=== PATIENT | female | born 1955 | race Caucasian/White ===

== ENCOUNTER 2017-03-11 13:25 | Emergency (ER) | payer BC, OTHER ==
[~2017-03-11] VITALS: Ht 165.1 cm; Wt 100.0 kg
[~2017-03-11 13:25] MED LIST: CLAR10TA7 PO; COLL30OI3 TOP; FURO20 PO; LEVO50TA4 PO; LOTE40TA PO; METF500 PO; MOBI15TA PO; MS C30TA5 PO; OXYC20 PO; PREG300 PO; PROT40TA PO
[2017-03-11 13:27] VITALS: BP 140/63; PULSE 69; RESP 18; TEMP 97.8; O2SAT 98
--- NOTE | 2017-03-11 13:34 | PD ---
Physical Exam Date Seen by Provider: March 11, 2017 Time Seen by Provider: 13:31 Narrative 62 y/o female with Right lateral foot pain for the past 6 weeks. Denies injury. Patient is Type 2 diabetic. Denies Hx. of gout. No Fever Chills. No Open Wounds. Pain is 10/10, and worse with ambulation. V/S Stable Awaiting Bed Placement. Data Data Last Documented VS Vital Signs Date Time Temp Pulse Resp B/P Pulse Ox O2 Delivery O2 Flow Rate FiO2 03/11/17 13:27 97.8 69 18 140/63 98 MDM Medical Record Reviewed: Yes Supervised Visit with RAYA: Yes Condition: Stable Raman Clayton March 11, 2017 13:34
[2017-03-11] MEDS ORDERED: ESTR1TAB PO (14:49)
--- NOTE | 2017-03-11 15:06 | RADRPT ---
EXAM DATE/TIME: 03/11/2017 14:47 [facility] COMPARISON: No previous studies available for comparison. INDICATIONS : Pain lateral side of right foot and 5th metatarsal for several weeks, no known trauma MEDICAL HISTORY : None. SURGICAL HISTORY : back surgery ENCOUNTER: Initial ACUITY: 2 weeks PAIN SCORE: 10/10 LOCATION: Right foot FINDINGS: Three view examination of the right foot demonstrates no soft tissue swelling, dislocation, or fractu re. The tarsal bones appear intact. The interphalangeal and metatarsophalangeal joints are intact. The calcaneus is intact. There is mild osteopenia. There are mild degenerative joint changes. CONCLUSION: 1. Mild osteoarthritic change. 2. Mild osteopenia. Tommy Cruz MD on March 11, 2017 at 15:04 Board Certified Radiologist. This report was verified electronically.
--- NOTE | 2017-03-11 15:29 | PD ---
HPI Chief Complaint: Pain: Acute or Chronic Time Seen by Provider: 14:00 Travel History International Travel<30 days: No Contact w/Intl Traveler<30days: No Traveled to known affect area: No History of Present Illness HPI 62 -year-old female with Right lateral foot pain for the past 6 weeks. Denies trauma. Past medical history significant for type 2 diabetes, hypertension, chronic back pain, osteoarthritis of both knees. Denies Hx. of gout. No Fever Chills. No Open Wounds. Pain is 10/10, and worse with ambulation. PFSH Past Medical History Arthritis: Yes Asthma: No Blood Disorders: Yes (PULMONARY EMBOLISM X 1, 1976) Anxiety: Yes Depression: Yes Cancer: Yes (hx of melanoma left upper arm 2013) High Cholesterol: Yes Diabetes: Yes Diverticulitis: Yes Deep Vein Thrombosis: Yes ("1976,pulmonary embolism" WITHOUT DVT) Endocrine: Yes Gastrointestinal Disorders: Yes GERD: Yes Headaches: Yes Hypertension: Yes Immune Disorder: Yes (unknown diagnosis) Inguinal Hernia: Yes (REPAIRED 1991) Implanted Vascular Access Dvce: Yes Musculoskeletal: Yes (arthritis bulging disc and spinal stenosis lumbar area ) Neurologic: Yes (migraines) Immunizations Current: Yes Migraines: Yes Thyroid Disease: Yes PNEUMOCCOCAL Vaccine (Year): 1 Menopausal: Yes : 2 Para: 2 Miscarriage: 0 : 0 Past Surgical History Abdominal Surgery: Yes (cholecystectomy) Appendectomy: Yes Body Medical Devices: hardware in the back Cholecystectomy: Yes (JUN 2008) Ear Surgery: No Endocrine Surgery: No Eye Surgery: No Genitourinary Surgery: Yes Gynecologic Surgery: Yes (hysterectomy) Hysterectomy: Yes Joint Replacement: No Oral Surgery: No Pacemaker: No Thoracic Surgery: Yes (HERNIA REPAIR) Tonsillectomy: Yes Other Surgery: Yes (MELANOMA REMOVED) Family History Family Hypercholesterolemia: Yes Social History Alcohol Use: No Tobacco Use: No Substance Use: No Allergies-Medications (Allergen,Severity, Reaction): Coded Allergies: Latex (Verified Allergy, Intermediate, Rash, 03/11/17) Adhesives (Verified Adverse Reaction, Intermediate, RASH, 03/11/17) paper tape is ok Sulfa (Verified Adverse Reaction, Intermediate, RASH, 03/11/17) Reported Meds & Prescriptions Reported Meds & Active Scripts Active Reported Estradiol 1 Mg Tab 1 Mg PO DAILY Glucophage 500 mg (Metformin HCl) 500 Mg Tab 500 Mg PO Protonix (Pantoprazole Sodium) 40 Mg Tab 40 Mg PO BID Lotensin 40 mg (Benazepril HCl) 40 Mg Tab 1 Tab PO HS Levothyroxine 50 mcg (Levothyroxine Sodium) 50 Mcg Tab 50 Mcg PO DAILY Lasix 20 Mg Tab (Furosemide) 20 Mg Tab 20 Mg PO DAILY OxyCONTIN ER (Oxycodone HCl) 20 Mg Tabcr 30 Mg PO Q8 PRN Ms Contin (Morphine Sulfate) 30 Mg Tab 100 Mg PO TID Physical Exam Narrative GENERAL: Well-nourished well-appearing female. SKIN: Warm and dry. No open wounds. HEAD: Atraumatic. Normocephalic. EYES: Pupils equal and round. No scleral icterus. No injection or drainage. ENT: No nasal bleeding or discharge. Mucous membranes pink and moist. NECK: Trachea midline. No JVD. CARDIOVASCULAR: Regular rate and rhythm. RESPIRATORY: No accessory muscle use. Clear to auscultation. Breath sounds equal bilaterally. GASTROINTESTINAL: Abdomen soft, non-tender, nondistended. Hepatic and splenic margins not palpable. MUSCULOSKELETAL: Extremities without clubbing, cyanosis, or edema. No obvious deformities. Right foot: Tender over the lateral aspect. no swelling, no erythema, no ecchymosis, no wounds. NEUROLOGICAL: Awake and alert. No obvious cranial nerve deficits. Motor grossly within normal limits. Five out of 5 muscle strength in the arms and legs. Normal speech. PSYCHIATRIC: Appropriate mood and affect; insight and judgment normal. Data Data Last Documented VS Vital Signs Date Time Temp Pulse Resp B/P Pulse Ox O2 Delivery O2 Flow Rate FiO2 03/11/17 13:27 97.8 69 18 140/63 98 Orders Foot, Complete (Nav2pou) (03/11/17 ) [facility] Medical Decision Making Medical Screen Exam Complete: Yes Emergency Medical Condition: No Differential Diagnosis Metatarsal fracture, plantar fasciitis, midfoot sprain, gout Narrative Course 62-year-old female presents to the emergency department for with a 6 week history of right lateral foot pain. She denies trauma or wounds to the foot. X -ray the foot is negative for fracture. Patient will be treated for midfoot sprain versus plantar fasciitis. She will be given a prescription for NSAIDs and follow up with podiatry. Patient is agreeable to this plan. Diagnosis Primary Impression: Foot pain, right Referrals: Continuous Improvement Intern Patient Instructions: Foot Sprain (ED), General Instructions Scripts Ibuprofen (Motrin Ib)200 Mg [id number] Mg PO Q8HR PRN (PAIN SCALE 1 TO 5) #20 TAB Prov:Madalyn Kraft 03/11/17 Disposition: 01 DISCHARGE HOME Condition: Stable Madalyn Kraft March 11, 2017 15:29
[2017-03-11] MEDS ORDERED: MOTR200T4 PO (15:39)
[2017-03-11] MEDS ORDERED: KETOROLAC TROMETHAMINE 60 MG/2 ML (IM) VIAL IM ONE (15:45)
[2017-03-11] MEDS ORDERED: MS C100T PO (16:06)
[2017-03-11] MEDS ORDERED: BENA40TA PO (16:06)
[2017-03-11] MEDS ORDERED: OXYC30TA62 PO (16:06)
[2017-03-11] MEDS ORDERED: FURO1TAB62 PO (16:06)
[2017-03-11] MEDS ORDERED: LEVO50TA4 PO (16:06)
[2017-03-11] MEDS ORDERED: METF500T PO (16:06)
[2017-03-11] MEDS ORDERED: PROT40TA PO (16:06)
== END 2017-03-11 15:53 | disposition home or self-care (01) ==
LOC: NEPK 13:25
DX: M79.671 Pain in right foot (principal); E11.9 Type 2 diabetes mellitus without complications; I10 Essential (primary) hypertension; E07.9 Disorder of thyroid, unspecified; E78.00 Pure hypercholesterolemia, unspecified; Z79.84 Long term (current) use of oral hypoglycemic drugs; Z87.39 Personal history of other diseases of the musculoskeletal system and connective tissue; Z86.59 Personal history of other mental and behavioral disorders; Z85.828 Personal history of other malignant neoplasm of skin; Z87.19 Personal history of other diseases of the digestive system; Z86.69 Personal history of other diseases of the nervous system and sense organs
CPT/HCPCS: 73630; 96372; 99284; J1885

== ENCOUNTER 2017-05-03 16:08 | Emergency (ER) | payer BC ==
[~2017-05-03] VITALS: Ht 165.1 cm; Wt 100.0 kg
[~2017-05-03 16:08] MED LIST changes: +BENA40TA PO; -CLAR10TA7 PO; -COLL30OI3 TOP; +ESTR1TAB PO; +FURO1TAB62 PO; -FURO20 PO; -LOTE40TA PO; -METF500 PO; +METF500T PO; -MOBI15TA PO; +MOTR200T4 PO; +MS C100T PO; -MS C30TA5 PO; -OXYC20 PO; +OXYC30TA62 PO; -PREG300 PO
[2017-05-03 16:10] VITALS: BP 160/77; PULSE 86; RESP 17; TEMP 98.3; O2SAT 96
[2017-05-03] MEDS ORDERED: OXYC30TA62 PO (16:32)
[2017-05-03] MEDS ORDERED: MORP1TAB26 PO (16:32)
[2017-05-03] MEDS ORDERED: KETOROLAC TROMETHAMINE 60 MG/2 ML (IM) VIAL IM ONE (17:00)
--- NOTE | 2017-05-03 17:45 | PD ---
HPI Chief Complaint: Back/ Neck Pain or Injury Time Seen by Provider: 16:40 Travel History International Travel<30 days: No Contact w/Intl Traveler<30days: No Traveled to known affect area: No History of Present Illness HPI 62-year-old female with extensive history of previous back surgeries presents emergency department for evaluation of low back pain status post falling from a seated position when her chair rolled out from under her today. She fell to the floor landing on her buttocks. There was no head injury. Patient reports pain within the low back as well as some burning-type radiating pain down her left buttocks and thigh. She denies incontinence, numbness/weakness/tingling in the lower extremities. She reports this pain feels similar to nerve pain she 's had in the past. PFSH Past Medical History Arthritis: Yes Asthma: No Blood Disorders: Yes (PULMONARY EMBOLISM X 1, 1976) Anxiety: Yes Depression: Yes Cancer: Yes (hx of melanoma left upper arm 2013) High Cholesterol: Yes Diabetes: Yes Diverticulitis: Yes Deep Vein Thrombosis: Yes ("1976,pulmonary embolism" WITHOUT DVT) Endocrine: Yes Gastrointestinal Disorders: Yes (reflux) GERD: Yes Headaches: Yes Hypertension: Yes Immune Disorder: Yes (unknown diagnosis) Inguinal Hernia: Yes (REPAIRED 1991) Implanted Vascular Access Dvce: Yes Musculoskeletal: Yes (arthritis bulging disc and spinal stenosis lumbar area ) Neurologic: Yes (migraines) Immunizations Current: Yes Migraines: Yes Thyroid Disease: Yes PNEUMOCCOCAL Vaccine (Year): 1 Menopausal: Yes : 2 Para: 2 Miscarriage: 0 : 0 Past Surgical History Abdominal Surgery: Yes (cholecystectomy) Appendectomy: Yes Body Medical Devices: hardware in the back Cholecystectomy: Yes (JUN 2008) Ear Surgery: No Endocrine Surgery: No Eye Surgery: No Genitourinary Surgery: Yes Gynecologic Surgery: Yes (hysterectomy) Hysterectomy: Yes Joint Replacement: No Neurologic Surgery: No Oral Surgery: No Pacemaker: No Thoracic Surgery: Yes (HERNIA REPAIR) Tonsillectomy: Yes Other Surgery: Yes (MELANOMA REMOVED) Family History Family Hypercholesterolemia: Yes Social History Alcohol Use: No Tobacco Use: No Substance Use: No Allergies-Medications (Allergen,Severity, Reaction): Coded Allergies: Latex (Verified Allergy, Intermediate, Rash, 05/03/17) Adhesives (Verified Adverse Reaction, Intermediate, RASH, 05/03/17) paper tape is ok Sulfa (Verified Adverse Reaction, Intermediate, RASH, 05/03/17) Reported Meds & Prescriptions Reported Meds & Active Scripts Active Naprosyn (Naproxen) 500 Mg Tab 500 Mg PO BID Reported Oxycontin (Oxycodone HCl) 30 Mg Tab 30 Mg PO Q8HR Morphine ER (Morphine Sulfate) 60 Mg Tab 60 Mg PO Q8H Protonix (Pantoprazole Sodium) 40 Mg Tab 40 Mg PO DAILY Metformin (Metformin HCl) 500 Mg Tab 500 Mg PO BIDPC With meals Levothyroxine (Levothyroxine Sodium) 50 Mcg Tab 50 Mcg PO DAILY Lasix (Furosemide) 20 Mg Tab 20 Mg PO DAILY Benazepril (Benazepril HCl) 40 Mg Tab 40 Mg PO DAILY Estradiol 1 Mg Tab 1 Mg PO DAILY Review of Systems Except as stated in HPI: all other systems reviewed are Neg General / Constitutional: No: Fever Eyes: No: Visual changes HENT: No: Headaches Cardiovascular: No: Chest Pain or Discomfort Respiratory: No: Shortness of Breath Gastrointestinal: No: Abdominal Pain Genitourinary: No: Dysuria Musculoskeletal: Positive: Pain (low back pain) Neurologic: No: Weakness Physical Exam Narrative GENERAL: Alert, well-appearing female. Patient is tearful when she attempts to stand and reposition. SKIN: Focused skin assessment warm/dry. HEAD: Atraumatic. Normocephalic. EYES: Pupils equal and round. No scleral icterus. No injection or drainage. ENT: No nasal bleeding or discharge. Mucous membranes pink and moist. NECK: Trachea midline. No JVD. CARDIOVASCULAR: Regular rate and rhythm. No murmur appreciated. RESPIRATORY: No accessory muscle use. Clear to auscultation. Breath sounds equal bilaterally. GASTROINTESTINAL: Abdomen soft, non-tender, nondistended. Hepatic and splenic margins not palpable. MUSCULOSKELETAL: No obvious deformities. No clubbing. No cyanosis. No edema. BACK: Point tenderness to the lumbar spine as well as the paraspinous muscles in the lumbar region. 5 out of 5 strength in lower extremities. Active dorsiflexion and plantar flexion intact. NEUROLOGICAL: Awake and alert. No obvious cranial nerve deficits. Motor grossly within normal limits. Normal speech. PSYCHIATRIC: Appropriate mood and affect; insight and judgment normal. Data Data Last Documented VS Vital Signs Date Time Temp Pulse Resp B/P Pulse Ox O2 Delivery O2 Flow Rate FiO2 05/03/17 16:10 98.3 86 17 160/77 96 Room Air Orders Ketorolac Inj (Toradol Inj) (05/03/17 17:00) Spine, Lumbar - Ltd (Ap & Lat) (05/03/17 ) Orphenadrine Inj (Norflex Inj) (05/03/17 18:15) MDM Medical Decision Making Medical Screen Exam Complete: Yes Emergency Medical Condition: Yes Differential Diagnosis Lumbar strain, lumbar spine fracture, sciatica Narrative Course 62-year-old female with history of chronic low back pain presents emergency department for evaluation of low back pain status post falling from a seated position out of her rolling chair. She reports pain within the low back with some radiation into the left buttocks and left mid thigh. She denies incontinence, saddle anesthesia, numbness/weakness/tingling in lower extremities. X-ray of the lumbar spine: Hardware intact no acute findings. Diagnostic studies discussed with patient and family. Patient reports symptom improvement after the Toradol. She is complaining of some muscle spasm in the low back she will be given a shot or flex. She agrees to follow with her primary care doctor on Saturday for reevaluation. Return precautions discussed with patient. Patient agrees to plan Diagnosis Primary Impression: Sciatica Qualified Code: M54.32 - Sciatica of left side Referrals: Primary Care Physician Additional Instructions: Taking her current medications as prescribed. Take Naprosyn as needed for pain. Make an appointment for follow-up with her primary doctor on Saturday05/06/17 Return to the emergency department if he developed new or worsening symptoms. Scripts Naproxen (Naprosyn)500 Mg [id number] Mg PO BID #30 TAB Ref 0 Prov:Madalyn Kraft 05/03/17 Disposition: 01 DISCHARGE HOME Condition: Stable Madalyn Kraft May 03, 2017 17:45
--- NOTE | 2017-05-03 17:57 | RADRPT ---
EXAM DATE/TIME: 05/03/2017 17:39 [facility] COMPARISON: No previous studies available for comparison. INDICATIONS : Lower back pain post fall today MEDICAL HISTORY : None. SURGICAL HISTORY : Fusion, lumbar. ENCOUNTER: Initial ACUITY: 1 day PAIN SCORE: 10/10 LOCATION: Lumbar spine FINDINGS: No appreciable compression deformities, spondylolisthesis, or spondylolysis is seen. The disc spaces are well-maintained for technique. Surgical screws traverse the bodies of L3 and L4 with posterior s tabilization hardware in place and anterior fusion at this level in addition to laminectomy. Moderate degenarative changes are seen within the disc space and facets at L4-5 and L5-S1. CONCLUSION: Chronic changes. Joel Vanegas MD on May 03, 2017 at 17:54 Board Certified Radiologist. This report was verified electronically.
[2017-05-03] MEDS ORDERED: ORPHENADRINE INJ 60 MG/2 ML AMP IM ONE (18:15)
[2017-05-03] MEDS ORDERED: NAPR500 PO (18:18)
== END 2017-05-03 18:57 | disposition home or self-care (01) ==
LOC: NEPK 16:08
DX: M54.42 Lumbago with sciatica, left side (principal); W07.XXXA Fall from chair, initial encounter; Y92.009 Unspecified place in unspecified non-institutional (private) residence as the place of occurrence of the external cause
CPT/HCPCS: 72100; 96372; 99284; J1885; J2360

== ENCOUNTER 2017-07-06 17:36 | Emergency (ER) | payer BC ==
[~2017-07-06] VITALS: Ht 165.1 cm; Wt 100.0 kg
[~2017-07-06 17:36] MED LIST changes: +MORP1TAB26 PO; -MOTR200T4 PO; -MS C100T PO; +NAPR500 PO
[2017-07-06 17:38] VITALS: BP 135/76; PULSE 93; RESP 17; TEMP 98.4; O2SAT 99
[2017-07-06] MEDS ORDERED: OXYC30TA PO (18:03)
--- NOTE | 2017-07-06 18:08 | PD ---
HPI . out of her medication Chief Complaint: Medication Refill Request Time Seen by Provider: 17:59 Travel History International Travel<30 days: No Contact w/Intl Traveler<30days: No Traveled to known affect area: No History of Present Illness HPI 62 yr old female with chronic back pain here requesting a short supply of pain medications. She says she missed her doctor's appointment because her flight was cancelled on the date of her appointment. She has a f/u with her pain specialist and requesting a temporary supply until then. PFSH Past Medical History Arthritis: Yes Asthma: No Blood Disorders: Yes (PULMONARY EMBOLISM X 1, 1976) Anxiety: Yes Depression: Yes Cancer: Yes (hx of melanoma left upper arm 2013) High Cholesterol: Yes Diabetes: Yes Diverticulitis: Yes Deep Vein Thrombosis: Yes ("1976,pulmonary embolism" WITHOUT DVT) Endocrine: Yes Gastrointestinal Disorders: Yes (reflux) GERD: Yes Headaches: Yes Hypertension: Yes Immune Disorder: Yes (unknown diagnosis) Inguinal Hernia: Yes (REPAIRED 1991) Implanted Vascular Access Dvce: Yes Musculoskeletal: Yes (arthritis bulging disc and spinal stenosis lumbar area ) Neurologic: Yes (migraines) Immunizations Current: Yes Migraines: Yes Thyroid Disease: Yes PNEUMOCCOCAL Vaccine (Year): 1 Menopausal: Yes : 2 Para: 2 Miscarriage: 0 : 0 Past Surgical History Abdominal Surgery: Yes (cholecystectomy) Appendectomy: Yes Body Medical Devices: hardware in the back Cholecystectomy: Yes (JUN 2008) Ear Surgery: No Endocrine Surgery: No Eye Surgery: No Genitourinary Surgery: Yes Gynecologic Surgery: Yes (hysterectomy) Hysterectomy: Yes Joint Replacement: No Neurologic Surgery: No Oral Surgery: No Pacemaker: No Thoracic Surgery: Yes (HERNIA REPAIR) Tonsillectomy: Yes Other Surgery: Yes (MELANOMA REMOVED) Family History Family Hypercholesterolemia: Yes Social History Alcohol Use: No Tobacco Use: No Substance Use: No Allergies-Medications (Allergen,Severity, Reaction): Coded Allergies: latex (Unverified Allergy, Intermediate, Rash, 06/04/17) Sulfa (Sulfonamide Antibiotics) (Unverified Adverse Reaction, Intermediate , RASH, 06/04/17) adhesive (Unverified Adverse Reaction, Intermediate, RASH, 06/04/17) paper tape is ok Reported Meds & Prescriptions Reported Meds & Active Scripts Active Oxycodone (Oxycodone HCl) 30 Mg Tab 30 Mg PO Q8HR Naprosyn (Naproxen) 500 Mg Tab 500 Mg PO BID Reported Oxycontin (Oxycodone HCl) 30 Mg Tab 30 Mg PO Q8HR Morphine ER (Morphine Sulfate) 60 Mg Tab 60 Mg PO Q8H Protonix (Pantoprazole Sodium) 40 Mg Tab 40 Mg PO DAILY Metformin (Metformin HCl) 500 Mg Tab 500 Mg PO BIDPC With meals Levothyroxine (Levothyroxine Sodium) 50 Mcg Tab 50 Mcg PO DAILY Lasix (Furosemide) 20 Mg Tab 20 Mg PO DAILY Benazepril (Benazepril HCl) 40 Mg Tab 40 Mg PO DAILY Estradiol 1 Mg Tab 1 Mg PO DAILY Review of Systems General / Constitutional: No: Fever Eyes: No: Visual changes HENT: No: Headaches Cardiovascular: No: Chest Pain or Discomfort Respiratory: No: Shortness of Breath Gastrointestinal: No: Abdominal Pain Genitourinary: No: Dysuria Musculoskeletal: Positive: Pain (chronic back pain ) Skin: No Rash Neurologic: No: Weakness Psychiatric: No: Depression Endocrine: No: Polydipsia Hematologic/Lymphatic: No: Easy Bruising Physical Exam Narrative GENERAL: AAO x 3, no acute distress, Well-nourished, well-developed patient. comfortable SKIN: Warm and dry. No visible rashes or bruising. HEAD: Normocephalic and atraumatic. EYES: No scleral icterus. No injection or drainage. ENT: No nasal drainage noted. Mucous membranes pink. Airway patent. NECK: Supple, trachea midline. No JVD. CARDIOVASCULAR: Regular rate and rhythm without murmurs, gallops, or rubs. RESPIRATORY: Breath sounds equal bilaterally. No accessory muscle use. No rhonchi or rales. GASTROINTESTINAL: visual inspection normal EXTREMITIES: No cyanosis or edema. BACK: No obvious deformity. NEURO: CN II-12 intact PSYCH: AAO x 3, normal affect. Data Data Last Documented VS Vital Signs Date Time Temp Pulse Resp B/P (MAP) Pulse Ox O2 Delivery O2 Flow Rate FiO2 07/06/17 17:38 98.4 93 17 135/76 (95) 99 MDM Medical Decision Making Medical Screen Exam Complete: Yes Emergency Medical Condition: Yes Medical Record Reviewed: Yes Differential Diagnosis medication refill, chronic back pain, opiate addiction Narrative Course 62 yr old female here requesting a short supply of medication. She is wanting 24 pills of oxycodone. I have discussed with my attending. I have provided her with a short supply to last her through the weekend. She will need to obtain further refills from her PCP. 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 Med/Other Pt SpecificInfo: Prescription(s) given Scripts Oxycodone (Oxycodone) 30 Mg Tab 30 MG PO Q8HR for Pain Management, #12 TAB 0 Refills Prov: Donn Castrejon MD 07/06/17 Disposition: 01 DISCHARGE HOME Condition: Stable Tita Sanchez Jul 06, 2017 18:08
== END 2017-07-06 18:36 | disposition home or self-care (01) ==
LOC: NEPD 17:36
DX: Z76.0 Encounter for issue of repeat prescription (principal); G89.29 Other chronic pain; M54.5 Low back pain
CPT/HCPCS: 99281